=== PATIENT | male | born 1945 | race Caucasian/White ===

== ENCOUNTER 2024-06-09 16:32 | Emergency (ER) | payer MEDICARE, OTHER, SELFPAY ==
--- NOTE | 2024-06-09 16:36 | EKG_ITS ---
[facility] Test Date: 2024-06-09 Pat Name: SAL NIX Department: Room: - Gender: Male Community Relations Liaison: : 1945 Requested By: ED Temporary Provider Order Number: [id number] Reading MD: ED Temporary Provider Measurements Intervals Elora Rate: 53 P: OR: QRS: -4 QRSD: 104 T: 80 QT: 432 QTc: 408 Interpretive Statements ATRIAL FIBRILLATION WITH SLOW VENTRICULAR RESPONSE INFERIOR MYOCARDIAL INFARCTION , POSSIBLY ACUTE [40+ ms Q WAVE AND/OR ST/T ABNORMALITY IN II/aVF] ACUTE [place] No previous ECG available for comparison /store/S0/[id number]/ecg/[id number].pdf
[2024-06-09 16:53] VITALS: BP 137/91; PULSE 59; TEMP 36.3; O2SAT 95
--- NOTE | 2024-06-09 16:55 | PD.EDCHEST ---
ED Chest Pain RME/HPI General Chief Complaint: Arrhythmia/Palpitations Stated Complaint: LIGHTHEADED, CHEST PAIN, SOB, PALPITATIONS-1530 Time Seen by Provider: 06/09/24 16:40 Arrival date/time: 06/09/24 16:32 RME / HPI RME / HPI narrative: DR. HUERTA MAIN ED EVALUATION: 79 year old male presents to the Emergency Department with complaint of chest pain onset 1530 hours. Pain is described as tightness and pressure and rated severe. Associated symptoms include shortness of breath. Per , patient has been having chronic back pain but in the last 2 weeks it has been worse; today the patient took oxycodone today for his back pain before he had chest pain today. PMHx: Hypertension and atrial fibrillation on Coumadin, chronic back pain. Dr. Hays is the rotary cutter feeder. Social Hx: No tobacco, alcohol, or substance use. Related Data Allergies Allergy/AdvReac Type Severity Reaction Status Date / Time No Known Allergies Allergy Verified 06/09/24 16:35 Review of Systems Review of Systems Systems Reviewed: All systems reviewed, normal except as documented Past Medical History Social History SMOKING STATUS: Never smoker SUBSTANCE USE: does not use ALCOHOL: Never Past Medical History Comments PMH COMMENT: Hypertension and atrial fibrillation on Coumadin, chronic back pain. Dr. Hays is the rotary cutter feeder. ED Exam Narrative Physical exam: Physical Exam: General: The vital signs were reviewed. Patient was in RME 2 having chest pain and a heart alert was called after an EKG reveals ST elevations in lead to 3 and aVF. Patient was brought over to room 2 in the ED side. Heart rates 59 the patient is non-toxic, in no apparent distress and appears healthy with a patent airway, no respiratory distress and has no apparent circulatory problems. Head & Scalp: Normocephalic, atraumatic. Face: Appears normal and is without lesions, deformity. Ears: Left external pinna appears normal. Right external pinna appears normal. Eyes: The sclera is anicteric. No obvious photophobia. The Left and Right Orbit/Lid/Conjunctiva appears normal without swelling, discoloration or injection. Nose: The nose is without deformity, discharge or tenderness; Throat: Appears normal. The mucous membranes are pink and moist without exudates, redness or mass seen. The tongue appears normal. Neck: The neck is supple and no apparent mass or adenopathy. Chest: The chest wall is normal in size and symmetry and has no chest wall tenderness or crepitus. The patient displays normal ventilator effort without retractions, accessory muscle use and has adequate air movement bilaterally with no wheezes and no rales. Cardiovascular: Regular rate and rhythm; No murmurs, rubs, or gallops; Gastrointestinal: The abdomen appears normal. No obvious hernias or mass. The abdomen is soft and benign, non-distended, with no pain, no guarding and no rebound tenderness. Bowel sounds are present and normal sounding. No CVA tenderness. Genitourinary: Back/Spine: Nontender Extremities/Musculoskeletal/lymphatic: The bilateral upper and lower extremities are warm. There is no evidence of arterial insufficiency. There is no evidence of venous insufficiency/edema. The patient spontaneously moves bilateral upper and lower extremities with no pain and no limitation of movement. There is no apparent, injury or trauma. Skin: The skin is warm, dry and intact. No rashes. No petechia. No purpura. No abnormal bruising. The color is appropriate with no cyanosis. Mental status/Psychiatric: Mental status is appropriate for age. The patient has no apparent delusions, visual hallucinations, no apparent audible hallucinations. The patient has no apparent suicidal thoughts/ideation and no apparent homicidal thoughts/ideation. Neurological: The patient is awake, alert, interactive, cordial, cooperative and is oriented to name and situation. The patient follows commands and answers historical question with no impairment. There is no visual disturbance apparent. The pupils are equal and reactive bilaterally with normal eye movements and no diplopia The bilateral upper and lower extremities have normal strength, normal range of motion and normal functioning. The gait, station and balance were not tested due to acuity. Course Quality Measures none Orders Category Date Time Status EKG (ED ONLY) *Do not use* NOW Care 06/09/24 16:36 Completed Notify provider NOW Care 06/09/24 16:59 Active EKG (ED Only) Stat Exams 06/09/24 16:36 Draft XR chest 1V portable Stat Exams 06/09/24 16:55 Completed B-Type Natriuretic Peptide Stat Lab 06/09/24 17:00 Received CBC Stat Lab 06/09/24 17:00 Completed Comprehensive Metabolic Panel Stat Lab 06/09/24 17:00 Completed LDH (Lactate Dehydrogenase) Stat Lab 06/09/24 17:00 Completed Magnesium Stat Lab 06/09/24 17:00 Completed Partial Thromboplastin Time AM DRAW Lab 06/11/24 05:00 Ordered Partial Thromboplastin Time Stat Lab 06/09/24 17:00 Completed Prothrombin Time with INR AM DRAW Lab 06/11/24 05:00 Ordered Prothrombin Time with INR Stat Lab 06/09/24 17:00 Completed Troponin I Stat Lab 06/09/24 17:00 Completed Urinalysis Stat Lab 06/09/24 16:54 Ordered Aspirin Med 06/09/24 16:59 Discontinued 325 mg PO X1 ONE Heparin Inj Med 06/09/24 17:00 Discontinued 5,000 unit IV X1 ONE Morphine Inj Med 06/09/24 17:21 Discontinued 5 mg IVP X1 ONE Ondansetron Inj [Zofran Inj] Med 06/09/24 17:21 Discontinued 4 mg IV X1 ONE Ticagrelor [Brilinta] Med 06/09/24 16:59 Discontinued 180 mg PO X1 ONE Vital Signs Vital signs: Vital Signs Temperature 97.4 F 06/09/24 16:53 Pulse Rate 59 L 06/09/24 16:53 Blood Pressure 137/91 H 06/09/24 16:53 Pulse Oximetry (%) 95 06/09/24 16:53 Oxygen Delivery Method Room Air 06/09/24 16:53 Chest Pain MDM Narrative MDM Narrative:: I, Alexia Brandon, am scribing for and in the presence of Dr. Huerta. At 1650 hrs. I went over to the [facility] side his heart alert was called and patient has ST elevation IN and was brought over to room 2. He appears relatively comfortable but he is having active chest pain. EKG reveals an obvious inferior wall IN with ST elevations across the inferior leads. Also has atrial fibrillation with a rate of around 53 which is a chronic problem. Our on-call cardiology was called at [address] with Dr[address] nelson, but he asked me to call Dr. Hays the patient specific rotary cutter feeder who is already at [facility]. The mental health unit lead psychologist connect me to Dr. Hays soon after who discussed the case and he wanted me to give the patient aspirin a bolus of heparin and 180 mg of Brilinta. And transfer the patient stat to [facility]. I told him he had to call the transfer nurse to [facility] to get acceptance I asked if he wanted me to give the patient tPA and he replied no just getting over the Watch Assembly Instructor as soon as possible. When back in the room found that the patient is taking Coumadin which is for his atrial fibs and has been well-controlled on the Coumadin. I wanted to make sure we if we should give the heparin with the Coumadin. Dr Hays was called several times to see but never called back so I spoke with our rotary cutter feeder Dr. nelson and he stated go ahead and give the heparin with the Coumadin. The [facility] transfer nurse Adriana called me at 1731 hrs. to take the history. Medical workup white count is 10.0 hemoglobin 13.8 MCV is 77 PT is 26.1 INR is 2.5 PTT is 34.1. Electrolytes are within normal limits BUN 17 creatinine 1.2 glucose is 155 initial troponin is negative BNP is pending at 1748 hrs. Urinalysis is pending transfer nurses come down to sign papers and patient should be transferred out soon at 1752 hrs. At the 1750 hrs. Jennie our transfer nurse informs me that they have accepted the patient in transfer waiting for ambulance to pick this patient up taken away. Patient data External records reviewed:: None (no previous visits) Clinical information provided by:: patient and spouse () Social determinants that could affect healthcare access:: none Patient has the following chronic illnesses:: Hypertension and atrial fibrillation on Coumadin, chronic back pain. Dr. Hays is the rotary cutter feeder. How is presenting disease/condition affected by chronic disease/condition?: exacerbated by Evaluation data The following diagnostics were reviewed and interpreted by me:: lab results, radiology exam(s) and EKG tracing(s) (EKG#1: EKG at 1648 hours. Interpreted by me: atrial fibrillation, rate 53, ST elevation in lead 2, 3, and AVF, positive STEMIEKG#2: EKG at 1650 hours. Interpreted by me: atrial fibrillation, rate 51, ST elevation in lead 2, 3, and AVF, positive STEMI) Lab and/or radiology exams considered but not ordered:: none Interpretation Summary: See above under MDM narrative. RADIOLOGY Procedure(s): XR chest 1V portable Accession Number(s): [id number] cc: Cruz Robles MD; Arlet De Guzman PA-C~ Examination: AP chest single view Technique one AP portable semiupright chest single view Exam date and time: June 09, 2024 1705 hrs. Indications: Chest pain shortness of breath beginning 3 days ago. Findings: Minimal prominence left ventricle Mild ectasia thoracic aorta. No pneumonia or pulmonary edema The osseous structures are intact Impression: No active disease Dictated By: Cruz Robles MD Medications / Prescriptions Medications or Prescriptions considered but not ordered:: none Medication administrations:: Medication Administration History Discontinued Medications Aspirin (Aspirin 325 Mg Tablet) 325 mg PO X1 ONE Stop: 06/09/24 17:00 Last Admin: 06/09/24 17:07 Dose: 325 mg Documented By: SHAGGY Heparin Sodium (Porcine) (Heparin Sod Inj 5000 Unit/Ml Vial) 5,000 unit IV X1 ONE Stop: 06/09/24 17:01 Last Admin: 06/09/24 17:14 Dose: 5,000 unit Documented By: SHAGGY Co-signed By: [facility] Morphine Sulfate (Morphine Sulf Inj 10 Mg/Ml Vial) 5 mg IVP X1 ONE Stop: 06/09/24 17:22 Last Admin: 06/09/24 17:26 Dose: 5 mg Documented By: SHAGGY Ondansetron HCl (Ondansetron Inj 2 Mg/Ml Inj 2 Ml) 4 mg IV X1 ONE; Protocol Stop: 06/09/24 17:22 Last Admin: 06/09/24 17:24 Dose: 4 mg Documented By: SHAGGY Ticagrelor (Ticagrelor 90 Mg Tablet) 180 mg PO X1 ONE Stop: 06/09/24 17:00 Last Admin: 06/09/24 17:07 Dose: 180 mg Documented By: SHAGGY see above Consultations Consultation(s) initiated? (list below): Yes Consultation #1 (Physician, Specialty, Details): Discussed test HPI, PMHx, lab, radiology results and/or management with Dr. Nelson but connected me to Dr. Hays. Time: 16:55 Consultation #2 (Physician, Specialty, Details): Discussed test HPI, PMHx, lab, radiology results and/or management with Dr. Reeves. Recommends transfer to [facility]. Following his recommendations. Time: 16:58 Consultation #3 (Physician, Specialty, Details): 1700: Discussed the case with transfer nurse. Will be transferred to [facility]. 1711: I called Dr. Hays x3 with no answer. Would like to consult on rather or not give the patient heparin since he is already on Coumadin for his atrial fibrillation. 1713: Consulted with Dr. Nelson and he states to go ahead give the heparin even though not all labs are back, see MDM narrative. 1731: Discussed the case with transfer nurse Adriana at [facility]. 1753: [facility] accepted the patient for transfer. Diagnosis Chest Pain Differential Diagnosis: stable angina, unstable angina pectoris, atypical chest pain, st elevation myocardial infarction and chest pain Most likely diagnosis given after review of the tests above:: Acute IN, inferior wall Admission Indicated Admission indicated?: not indicated Explain why admission is indicated or not indicated:: Patient needs higher level of care and will be transferred. Admission Request Was there a request for admission?: No Disposition Plan Disposition Plan: Transfer Critical Care Time Critical Care Time Critical Care Time: Yes Total Critical Care Time (min.): 45 Attestation: The high probability of sudden, clinically significant deterioration in the patient?s condition required the highest level of my preparedness to intervene urgently. The services I provided to this patient were to treat and/or prevent clinically significant deterioration. Services included the following: chart data review, reviewing nursing notes and/or old charts, documentation time, data management consultant collaboration regarding findings and treatment options, medication orders and management, direct patient care, vital sign assessments and ordering, interpreting and reviewing diagnostic studies and lab tests. Aggregate critical care time includes only time during which I was engaged in work directly related to the patient?s care, as described above, whether at bedside or elsewhere in the Emergency Department. It did not include time spent performing other reported procedures or the services of residents, students, nurses or physician assistants. Discharge Plan Plan Patient Disposition: [facility] [place] Pt Being Transferred to: [facility] Service Needed for Transfer: Cardiology Problem List Clinical Impression: Acute IN, inferior wall Patient/Caregiver Discharge Instructions Print Language: Khmer Stand Alone Forms: Valerie Award Info., Patient Portal Info Letter
[2024-06-09 16:56] VITALS: BMI 26.5
--- NOTE | 2024-06-09 16:57 | PD.EDRME ---
Rapid Medical Screening Exam RME Arrival date/time: 06/09/24 16:32 DR. VELASQUEZ MAIN ED EVALUATION: Chief Complaint: Arrhythmia/Palpitations Time Seen by Provider: 06/09/24 16:40 Vital signs: Vital Signs Temperature 97.4 F 06/09/24 16:53 Pulse Rate 59 L 06/09/24 16:53 Blood Pressure 137/91 H 06/09/24 16:53 Pulse Oximetry (%) 95 06/09/24 16:53 Oxygen Delivery Method Room Air 06/09/24 16:53 RME Narrative: 79-year-old male presents with a 1 hour history of chest pressure and tightness, shortness of breath, nausea, lightheadedness. Pressure and tightness came on at rest, described as pressure and tightness, radiating to his bilateral shoulders but no jaw or neck radiation, 8/10 on the pain scale, pain started 1 hour ago. EKGs obtained which are positive for acute STEMI. Heart alert called. Dr. Velasquez in to evaluate. I have greeted and performed a focused initial assessment of this patient. A comprehensive ED assessment and evaluation of the patient, analysis of all test results, and completion of the medical decision making process will be conducted by additional ED providers. DR. VELASQUEZ MAIN ED EVALUATION:
--- NOTE | 2024-06-09 17:00 | PD.IMCONS ---
HPI Data of Consult Primary Care Provider: Flex Hays MD Consult Narrative cc:: cc: Meds Home Medications and Allergies Allergies Allergy/AdvReac Type Severity Reaction Status Date / Time No Known Allergies Allergy Verified 06/09/24 16:35 Exam Vital Signs Temp Pulse Resp BP Pulse Ox O2 Del Method O2 Flow Rate 97.4 F 59 L 16 133/101 H 99 Nasal Cannula 3 06/09/24 16:53 06/09/24 17:19 06/09/24 17:19 06/09/24 17:21 06/09/24 17:41 06/09/24 17:41 06/09/24 17:41 Results Labs 06/09/24 17:00 06/09/24 17:00 Labs: Short CBC 06/09/24 Range/Units 17:00 WBC 10.0 (3.8-10.6) Thou/mm3 Hgb 13.8 (13.5-16.0) g/dL Hct 45.5 (41.0-53.0) % Plt Count 372 (140-440) Thou/mm3 BMP 06/09/24 17:00 Sodium 139 Potassium 4.0 Chloride 106 Carbon Dioxide 24.8 BUN 17 Creatinine 1.2 Glucose 155 H Calcium 8.8 Cardiac Enzymes 06/09/24 Range/Units 17:00 Troponin I < 0.020 (0.0-0.045) ng/mL Liver Function 06/09/24 Range/Units 17:00 Total Bilirubin 0.7 (0.3-1.2) mg/dL AST 19 (0-34) U/L ALT 14 (10-49) U/L Alkaline Phosphatase 64 (46-116) U/L Albumin 4.4 (3.4-4.8) gm/dL
[2024-06-09 17:04] VITALS: BP 142/113; PULSE 60; PULSE 67; RESP 11; O2SAT 100
--- NOTE | 2024-06-09 17:04 | PC.CM ---
Addendum entered by Jennie Umana RN 06/09/24 18:47: Patient accepted to [facility] ED with Dr. Hays. Stat transfer set up with [facility]. Packet complete and handed to ambulance. number to call and give report is [phone] Addendum entered by Jennie Umana RN 06/09/24 17:15: I spoke to Adriana at the transfer center at [facility]. She states she is busy and she was aware of the patient. I let her know I faxed over the paperwork. Adriana states she still needs to speak to Dr. Hays and she will call me back once that happens. Original Note: 2112 I recieved a call stating patient needs to be transferred for [place] and Dr. Hays would like patient to got o [facility]. Dr. Hays was going to reach out to [facility]. I will fax information and call [facility].
--- NOTE | 2024-06-09 17:05 | PC.NURSE ---
hold heparin per provider
[2024-06-09] MEDS: TICAGRELOR 90 MG TABLET 180 MG PO (17:07)
[2024-06-09] MEDS: Aspirin 325 MG TABLET PO (17:07)
--- NOTE | 2024-06-09 17:07 | PC.NURSE ---
pt brought in by for chest pain and sob that started around 1630.
[2024-06-09 17:08] VITALS: PULSE 61
[2024-06-09] MEDS: HEPARIN SOD INJ 5000 UNIT/ML VIAL IV (17:14)
[2024-06-09 17:19] VITALS: PULSE 59; RESP 16; O2SAT 95
[2024-06-09 17:21] VITALS: BP 133/101
[2024-06-09 17:22] LABS: Basophils # (Auto) 0.1 Thou/mm3 (0.0-0.2); Basophils % (Auto) 1 % (0-2.5); Eosinophils # (Auto) 0.2 Thou/mm3 (0.0-0.5); Eosinophils % (Auto) 2 % (0-10); Hematocrit 45.5 % (41.0-53.0); Hemoglobin 13.8 g/dL (13.5-16.0); Immature Granulocytes % (Auto) 0 % (0-0); Immature Granulocytes Auto 0.02 Thou/mm3 (0.00-0.00); Lymphocytes % (Auto) 20 % (10-50); Mean Corpuscular HGB Conc 30.3 g/dl (31.0-37.0); Mean Corpuscular Hemoglobin 23.5 pg (25.0-35.0); Mean Corpuscular Volume 77 fL (80-100); Monocytes # (Auto) 0.7 Thou/mm3 (0.0-0.8); Monocytes % (Auto) 7 % (0-12); Neutrophils # (Auto) 7.1 Thou/mm3 (1.8-7.7); Neutrophils % (Auto) 70 % (37-80); Nucleated Red Blood Cell % 0 /100 WBC (0); Platelet Count 372 Thou/mm3 (140-440); RDW Standard Deviation 49.6 fL (35.1-43.9); Red Blood Count 5.88 Miln/mm3 (4.50-5.90)
[2024-06-09] MEDS: ONDANSETRON INJ 2 MG/ML INJ 2 ML 4 MG IV (17:24)
[2024-06-09] MEDS: MORPHINE SULF INJ 10 MG/ML VIAL 5 MG IVP (17:26)
[2024-06-09 17:37] LABS: INR 2.5 (0.9-1.3); Partial Thromboplastin Time 34.1 Seconds (22.0-36.0); Prothrombin Time 26.1 Seconds (9.0-12.2)
[2024-06-09 17:40] LABS: Alanine Aminotransferase 14 U/L (10-49); Albumin, Serum 4.4 gm/dL (3.4-4.8); Albumin/Globulin Ratio 1.8 (1.2-2.2); Alkaline Phosphatase 64 U/L (46-116); Anion Gap 8 (7-16); Aspartate Amino Transferase 19 U/L (0-34); BUN/Creatinine Ratio 14 Ratio (12-20); Bilirubin,Total 0.7 mg/dL (0.3-1.2); Blood Urea Nitrogen 17 mg/dL (9-23); Calcium 8.8 mg/dL (8.3-10.6); Calcium (Corrected) 8.8 mg/dL (8.5-10.1); Carbon Dioxide 24.8 mMol/L (20.0-31.0); Chloride 106 mMol/L (98-107); Creatinine (Component) 1.2 mg/dL (0.6-1.3); Estimated Creatinine Clearance 57.3 mL/min (>60); Globulin 2.4 gm/dL (2.3-3.5); Glucose 155 mg/dL (74-106); LDH (Lactate Dehydrogenase) 193 U/L (120-246); Magnesium 1.8 mg/dL (1.6-2.6); Osmolality,Calculated 282 (275-295); Sodium 139 mMol/L (136-145); Total Protein 6.8 gm/dL (5.7-8.2); Troponin I < 0.020 ng/mL (0.0-0.045); eGFR > 60 See Note
[2024-06-09 17:41] VITALS: O2SAT 89; O2SAT 99
--- NOTE | 2024-06-09 17:57 | PC.NURSE ---
pt is being transfered to [facility]. called [facility] to give report to receiving RN (Morena). Gave report to ems (Andrew)
[2024-06-09 18:04] LABS: B-Type Natriuretic Peptide 177 pg/mL (0-100)
== END 2024-06-09 18:05 | disposition short-term general hospital (02) ==
LOC: SERX 18:04
PROVIDERS: Physician Assistant; Emergency Provider Emergency Medicine; PCP Internal Medicine Cardiovascular Disease
DX: I21.9 Acute myocardial infarction, unspecified (principal); I48.91 Unspecified atrial fibrillation; Z79.01 Long term (current) use of anticoagulants; Z75.1 Person awaiting admission to adequate facility elsewhere
CPT/HCPCS: 36415; 71045; 80053; 81001; 83615; 83735; 83880; 84484; 85025; 85610; 85730; 93005; 96374; 96375; 99291; J1643; J2270; J2405; A9270

== ENCOUNTER 2024-07-07 07:15 | Day surgery (SDC) | payer MEDICARE, OTHER, SELFPAY ==
--- NOTE | 2024-07-06 07:00 | EKG_ITS ---
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[place] : 1945 Requested By: Flex Gaviria Order Number: [id number] Reading MD: Flex Gaviria Measurements Intervals [place] Rate: 48 P: WI: QRS: 1 QRSD: 92 T: -52 QT: 497 QTc: 446 Interpretive Statements SINUS BRADYCARDIA WITH 2ND DEGREE AV BLOCK, MOBITZ TYPE II MODERATE T-WAVE ABNORMALITY, CONSIDER INFERIOR ISCHEMIA [-0.1+ mV T WAVE IN II/aVF] Compared to ECG 06/09/2024 16:50:33 T-wave abnormality now present Possible ischemia now present Atrial fibrillation no longer present Ventricular premature complex(es) no longer present Aberrant conduction of supraventricular beat(s) no longer present Myocardial infarct finding no longer present /store/S0/[id number]/[id number].pdf
[2024-07-06 13:09] LABS: Anion Gap 9 (7-16); BUN/Creatinine Ratio 11 Ratio (12-20); Blood Urea Nitrogen 13 mg/dL (9-23); Calcium 8.8 mg/dL (8.3-10.6); Carbon Dioxide 26.3 mMol/L (20.0-31.0); Chloride 106 mMol/L (98-107); Creatinine (Component) 1.2 mg/dL (0.6-1.3); Glucose 133 mg/dL (74-106); Osmolality,Calculated 283 (275-295); Potassium 4.5 mMol/L (3.4-5.1); Sodium 141 mMol/L (136-145); eGFR > 60 See Note
[2024-07-06 13:25] LABS: INR 1.1 (0.9-1.3); Partial Thromboplastin Time 26.7 Seconds (22.0-36.0); Prothrombin Time 11.6 Seconds (9.0-12.2)
[2024-07-06 13:40] LABS: Basophils # (Auto) 0.1 Thou/mm3 (0.0-0.2); Basophils % (Auto) 1 % (0-2.5); Eosinophils # (Auto) 0.3 Thou/mm3 (0.0-0.5); Eosinophils % (Auto) 3 % (0-10); Hematocrit 42.4 % (41.0-53.0); Hemoglobin 12.7 g/dL (13.5-16.0); Immature Granulocytes % (Auto) 0 % (0-0); Immature Granulocytes Auto 0.03 Thou/mm3 (0.00-0.00); Lymphocytes % (Auto) 20 % (10-50); Mean Corpuscular Hemoglobin 23.6 pg (25.0-35.0); Mean Corpuscular Volume 79 fL (80-100); Monocytes # (Auto) 0.9 Thou/mm3 (0.0-0.8); Monocytes % (Auto) 9 % (0-12); Neutrophils # (Auto) 6.7 Thou/mm3 (1.8-7.7); Neutrophils % (Auto) 68 % (37-80); Nucleated Red Blood Cell % 0 /100 WBC (0); Platelet Count 315 Thou/mm3 (140-440); RDW Standard Deviation 53.2 fL (35.1-43.9); Red Blood Count 5.37 Miln/mm3 (4.50-5.90); White Blood Count 9.9 Thou/mm3 (3.8-10.6)
[2024-07-07] VITALS (19 sets, daily range): BP systolic 117–141; BP diastolic 60–79; PULSE 41–57; RESP 12–20; TEMP 36.4–36.7; O2SAT 95–100
[2024-07-07] MEDS: ASPIRIN 81 MG CHEW PO (08:19)
[2024-07-07] MEDS: CLOPIDOGREL BISULFATE 75 MG TABLET PO (08:20)
--- NOTE | 2024-07-07 08:47 | PC.NURSE ---
0812 patient is awake, alert, breathing unlabored, s/p [facility], PCI by Dr. Hays, TR band to right wrist, no bleeding or hematoma noted, report received from Andrez HOWE, patient to recover for 4 hours. Aspirin and plavix due now. 818 aspirin 81mg given 819 plavix 75mg given 844 patient in [facility] eating breakfast, at bedside
--- NOTE | 2024-07-07 09:48 | ESOP_ITS ---
RE: SAL NIX : 1945 DATE OF OPERATION: 07/07/2024 PROCEDURE PERFORMED: 1. Diagnostic left heart cardiac catheterization, selective coronary angiogram, and left ventricular angiogram, CPT 43884. 2. PCI, PTCA stent placement of the mid left anterior descending artery, placement of drug eluting stent 3.0 x 18 mm XIENCE [employer] stent, preprocedure stenosis 90% and postprocedure stenosis 0%, YOLY flow preprocedure is 3 and postprocedure is 3, CPT 61329. 3. Ultrasound-guided access, right radial artery. 4. Conscious sedation, 30-minute duration. DIAGNOSES: Coronary artery disease, status post acute inferior myocardial infarction, angina pectoris, multivessel coronary artery disease, severe 90% stenosis of the left anterior descending artery. HISTORY AND INDICATIONS: The patient is a 79-year-old pleasant male with a history of chronic AFib and hypertension. He had an acute myocardial infarction a month ago. He had right coronary artery acute thrombotic occlusion and underwent successful PCI stent placement. At the same time, he was found to have 90% stenosis in the mid LAD. He continued to have anginal symptoms, hence coronary angiogram was recommended as well as patency of the right coronary artery and proceed with stent placement of mid left anterior descending artery, because of symptomatic class III angina pectoris and known CAD, recent acute myocardial infarction, class I indication. The patient was already on aspirin and Plavix with dual antibiotic drug therapy. DESCRIPTION OF PROCEDURE: The patient was brought to the cardiac catheterization laboratory where he was given 2 mg of Versed and 50 mcg of fentanyl for sedation. Right radial approach was taken. Right radial artery was cannulated with a micropuncture technique and 6-Barbadian Glidesheath was introduced. Radial cocktail consisting of 3000 units of heparin was given, additional 3000 units heparin was given, ACT of 250. Subsequently, proceeded with the cardiac catheterization coronary angiogram. Left heart catheterization performed by FR4 diagnostic catheter. Left ventricular angiogram performed and subsequently pullback pressures were measured and right coronary angiogram was performed by FR4 diagnostic catheter. Left coronary angiogram was performed by 6-Barbadian FL3.5 guiding catheter. Diagnostic procedure showed following findings. Right coronary artery is large and dominant showed evidence of irregular with ectasia. Stents are present in the mid RCA. Distal RCA appears to be widely patent. The PDA and posterolateral branches were also patent. Left coronary system: Left main coronary artery is ectatic and dilated. Left anterior descending artery showed evidence of discrete 90% stenosis of the mid left anterior descending artery and again ectatic. Circumflex artery is large and gives off obtuse marginal branches and appeared normal. Following diagnostic procedure, intervention was undertaken. Left heart catheterization showed following findings. Left ventricular pressure is 110/5, aortic pressure 110/68. No gradient across the aortic valve. Left ventricular angiogram showed normal left ventricular wall motion, ejection fraction of 55%. Following diagnostic procedure, PCI was undertaken. Details of the percutaneous coronary intervention as follows: The patient was given IV heparin, aspirin and Plavix was already preloaded. FL4 3.5 guiding catheter was placed in the left main coronary artery, a 0.014 Run-through guidewire used to cross the lesion successfully, 2.5 mm Euphora by [employer] 2.5 mm balloon was used to predilate the lesion. Subsequently, 3.0 x 18 mm XIENCE [employer] [facility] stent was deployed successfully in the mid left anterior descending artery. Three inflations were performed maximum of 16 atmospheric pressure. After the deployment of the stent, final angiogram showed widely patent left anterior descending artery. There was no residual stenosis and YOLY 3 flow. TR band was applied. Hemostasis was secured. SUMMARY OF FINDINGS: 1. Widely patent stent involving the right coronary artery and posterolateral branch of the right coronary artery. 2. A 90% stenosis of mid left anterior descending artery, underwent successful PCI stent placement of the mid left anterior descending artery, drug-eluting stent placed 3.0 x 18 mm XIENCE drug eluted stent with excellent angiographic results. ESTIMATED BLOOD LOSS: 0 mL. Of note, the patient did not get radial cocktail nitroglycerin since the patient did take Sildenafil yesterday. cc: Latoya Tim MD DT: 08:11:29 TT: 09:47:00 Ref: [id number] - TID: [id number]
--- NOTE | 2024-07-07 16:44 | PC.NURSE ---
0945 Heart Rate 40-50s, asymptomatic at this time, Patient and states that low heart rate is the patient's baseline and patient sees Dr. Hays who is aware and monitoring bradycardia in doctor visits. 1012 1ml air removed from TR band, no bleeding or hematoma noted 1115 TR band removed, no bleeding or hematoma noted, site covered with tegaderm and coban. 1237 patient is awake, alert, breathing unlabored, dressing to right wrist dry with no bleeding or hematoma noted. Patient able to ambulate to bathroom and void, able to tolerate food tray with no nausea or vomiting, meets discharge criteria, discharge instructions given to patient and [place], patient discharged home in wheelchair with all belongings. Pt to continue aspirin and plavix home medication tomorrow.
== END 2024-07-07 12:37 | disposition home or self-care (01) ==
PROVIDERS: PCP Registered Nurse; Referring Provider Internal Medicine Cardiovascular Disease; Visit Provider Internal Medicine Cardiovascular Disease
PROC: (CPT 93458; principal; 2024-07-07 07:30)
DX: I25.119 Atherosclerotic heart disease of native coronary artery with unspecified angina pectoris (principal); I25.2 Old myocardial infarction; I10 Essential (primary) hypertension; Z01.810 Encounter for preprocedural cardiovascular examination; I48.20 Chronic atrial fibrillation, unspecified; Z79.82 Long term (current) use of aspirin; Z79.02 Long term (current) use of antithrombotics/antiplatelets; N40.0 Benign prostatic hyperplasia without lower urinary tract symptoms
CPT/HCPCS: 93458; C9600; 36415; 80048; 85025; 85347; 85610; 85730; 93005; 99152; 99153; A4649; C1725; C1769; C1874; C1887; C1894; J0171; J0461; J1643; J2250; J2310; J2371; J3010; J3490; Q9967; A9270

== ENCOUNTER → 2024-10-20 | Outpatient (CLI) | payer MEDICARE, OTHER, SELFPAY ==
[2024-10-20 09:50] LABS: Collection Type, Urine Clean Catch; Squamous Epithelial Cell,Urine 0 /hpf (0-5)
[2024-10-20 10:11] LABS: Basophils # (Auto) 0.1 Thou/mm3 (0.0-0.2); Basophils % (Auto) 1 % (0-2.5); Eosinophils # (Auto) 0.4 Thou/mm3 (0.0-0.5); Eosinophils % (Auto) 4 % (0-10); Hematocrit 43.1 % (41.0-53.0); Hemoglobin 12.8 g/dL (13.5-16.0); Immature Granulocytes Auto 0.03 Thou/mm3 (0.00-0.00); Lymphocytes # (Auto) 1.3 Thou/mm3 (1.0-4.8); Lymphocytes % (Auto) 16 % (10-50); Mean Corpuscular HGB Conc 29.7 g/dl (31.0-37.0); Mean Corpuscular Hemoglobin 23.4 pg (25.0-35.0); Mean Corpuscular Volume 79 fL (80-100); Monocytes # (Auto) 0.7 Thou/mm3 (0.0-0.8); Monocytes % (Auto) 9 % (0-12); Neutrophils # (Auto) 5.5 Thou/mm3 (1.8-7.7); Neutrophils % (Auto) 69 % (37-80); Nucleated Red Blood Cell # 0.00 Thou/mm3 (0.00-0.00); Nucleated Red Blood Cell % 0 /100 WBC (0); Platelet Count 289 Thou/mm3 (140-440); RDW Standard Deviation 45.1 fL (35.1-43.9); Red Blood Count 5.47 Miln/mm3 (4.50-5.90); White Blood Count 8.1 Thou/mm3 (3.8-10.6)
[2024-10-20 10:20] LABS: Glucose Estimated Average 126 mg/dL (80-131); Hemoglobin A1C 6.0 % Hgb (4.8-6.0)
[2024-10-20 10:24] LABS: Vitamin D 25 Hydroxy Total 45.7 ng/mL (7.3-40.2)
[2024-10-20 10:29] LABS: Prostate Specific Antigen 7.27 ng/mL (0-4.00)
[2024-10-20 10:36] LABS: Amorphous Crystals,Urine Present (Absent); Bacteria,Urine Rare; Bilirubin,Urine Negative (Negative); Blood,Urine Negative (Negative); Clarity,Urine Clear (Clear/Hazy); Color,Urine Yellow (Lt Yel-Yel); Culture Indicated,Urine Not Indicated; Glucose, Urine Negative (Negative); Ketones,Urine Negative (Negative); Leukocyte Esterase,Urine Negative (Negative); Nitrite,Urine Negative (Negative); PH,Urine 6.0 (5.0-7.0); Protein,Urine Negative (Neg - Trace); RBC,Urine 9 /hpf (0-3); Specific Gravity,Urine 1.017 (1.001-1.035); Urobilinogen,Urine Negative mg/dL (0.0-1.0); WBC,Urine 1 /hpf (0-5)
[2024-10-20 10:36] LABS: Alanine Aminotransferase 21 U/L (10-49); Albumin, Serum 4.3 gm/dL (3.4-4.8); Albumin/Globulin Ratio 2.4 (1.2-2.2); Alkaline Phosphatase 60 U/L (46-116); Anion Gap 8 (7-16); Aspartate Amino Transferase 20 U/L (0-34); BUN/Creatinine Ratio 8 Ratio (12-20); Bilirubin,Total 0.9 mg/dL (0.3-1.2); Blood Urea Nitrogen 12 mg/dL (9-23); Calcium 9.6 mg/dL (8.3-10.6); Calcium (Corrected) 9.6 mg/dL (8.5-10.1); Carbon Dioxide 27.0 mMol/L (20.0-31.0); Cardiac Risk Estimate 2.0 RATIO (4.0-6.7); Chloride 106 mMol/L (98-107); Cholesterol 88 mg/dL (132-200); Creatinine (Component) 1.6 mg/dL (0.6-1.3); Globulin 1.8 gm/dL (2.3-3.5); Glucose 116 mg/dL (74-106); HDL Cholesterol 45 mg/dL (40-60); LDL Cholesterol,Calculated 32 mg/dL (0-130); Osmolality,Calculated 281 (275-295); Potassium 5.2 mMol/L (3.4-5.1); Sodium 141 mMol/L (136-145); Thyroid Stimulating Hormone 1.35 uIU/mL (0.55-4.78); Total Protein 6.1 gm/dL (5.7-8.2); Triglycerides 53 mg/dL (30-150); eGFR 44 See Note
== END | disposition home or self-care (01) ==
LOC: COPL 09:19
PROVIDERS: PCP Registered Nurse; Referring Provider Registered Nurse; Visit Provider Registered Nurse
DX: Z00.00 Encounter for general adult medical examination without abnormal findings (principal); E78.2 Mixed hyperlipidemia; R31.9 Hematuria, unspecified; I10 Essential (primary) hypertension; N40.1 Benign prostatic hyperplasia with lower urinary tract symptoms; R97.20 Elevated prostate specific antigen [PSA]; R73.03 Prediabetes
CPT/HCPCS: 36415; 80053; 80061; 81001; 82306; 83036; 84153; 84443; 85025

== ENCOUNTER → 2025-02-12 | Outpatient (CLI) | payer MEDICARE, OTHER, SELFPAY ==
[2025-02-12 13:06] LABS: Basophils # (Auto) 0.1 Thou/mm3 (0.0-0.2); Basophils % (Auto) 1 % (0-2.5); Eosinophils # (Auto) 0.1 Thou/mm3 (0.0-0.5); Eosinophils % (Auto) 2 % (0-10); Hematocrit 53.4 % (41.0-53.0); Hemoglobin 17.5 g/dL (13.5-16.0); Immature Granulocytes Auto 0.04 Thou/mm3 (0.00-0.00); Lymphocytes # (Auto) 1.5 Thou/mm3 (1.0-4.8); Lymphocytes % (Auto) 18 % (10-50); Mean Corpuscular HGB Conc 32.8 g/dl (31.0-37.0); Mean Corpuscular Hemoglobin 27.9 pg (25.0-35.0); Mean Corpuscular Volume 85 fL (80-100); Monocytes # (Auto) 0.7 Thou/mm3 (0.0-0.8); Monocytes % (Auto) 9 % (0-12); Neutrophils # (Auto) 6.0 Thou/mm3 (1.8-7.7); Neutrophils % (Auto) 71 % (37-80); Nucleated Red Blood Cell # 0.00 Thou/mm3 (0.00-0.00); Nucleated Red Blood Cell % 0 /100 WBC (0); Platelet Count 267 Thou/mm3 (140-440); RDW Standard Deviation 53.5 fL (35.1-43.9); Red Blood Count 6.27 Miln/mm3 (4.50-5.90); White Blood Count 8.4 Thou/mm3 (3.8-10.6)
[2025-02-12 13:28] LABS: Alanine Aminotransferase 24 U/L (10-49); Albumin, Serum 4.6 gm/dL (3.4-4.8); Albumin/Globulin Ratio 2.0 (1.2-2.2); Alkaline Phosphatase 60 U/L (46-116); Anion Gap 7 (7-16); Aspartate Amino Transferase 24 U/L (0-34); BUN/Creatinine Ratio 7 Ratio (12-20); Bilirubin,Total 0.8 mg/dL (0.3-1.2); Blood Urea Nitrogen 11 mg/dL (9-23); Calcium 9.3 mg/dL (8.3-10.6); Calcium (Corrected) 9.3 mg/dL (8.5-10.1); Carbon Dioxide 30.4 mMol/L (20.0-31.0); Chloride 104 mMol/L (98-107); Creatinine (Component) 1.5 mg/dL (0.6-1.3); Globulin 2.3 gm/dL (2.3-3.5); Glucose 125 mg/dL (74-106); Osmolality,Calculated 281 (275-295); Potassium 4.8 mMol/L (3.4-5.1); Sodium 141 mMol/L (136-145); Total Protein 6.9 gm/dL (5.7-8.2); eGFR 47 See Note
[2025-02-12 13:29] LABS: Iron 67 mcg/dL (65-175); Percent Iron Saturation 19 % (20-55); Total Iron Binding Capacity 342 mcg/dL (250-425); Unsaturated Iron Binding 275 (225-295)
== END | disposition home or self-care (01) ==
LOC: COPL 11:59
PROVIDERS: PCP Registered Nurse; Referring Provider Registered Nurse; Visit Provider Registered Nurse
DX: N18.30 Chronic kidney disease, stage 3 unspecified (principal); D63.1 Anemia in chronic kidney disease
CPT/HCPCS: 36415; 80053; 83540; 83550; 85025